=== PATIENT | female | born 1965 | race Caucasian/White ===

== ENCOUNTER 2020-03-03 07:15 | Inpatient (IN) | payer OTHER, SELFPAY ==
[~2020-03-03] VITALS: Ht 175.3 cm; Wt 92.1 kg
[2020-03-03 07:18] VITALS: Ht 175.3 cm; Wt 92.1 kg
[2020-03-03 08:14] LABS: PLATELET COUNT 306 x10^3mcL (130-400); RED CELL DISTRIBUTION WIDTH 13.4 % (11.5-14.5)
[2020-03-03 08:32] LABS: ALKALINE PHOSPHATASE 49 U/L (46-116); ALT/SGPT 29 U/L (14-59); AST/SGOT 26 U/L (15-37); BILIRUBIN TOTAL 0.93 mg/dL (0.20-1.00); C REACTIVE PROTEIN 8.6 mg/dL (<=0.9); CALCIUM 8.3 mg/dL (8.5-10.1); CHLORIDE SERUM 100 mmol/L (98-107); CREATININE SERUM 0.8 mg/dL (0.6-1.0); GFR1 > 60 mL/min; GLUCOSE SERUM 130 mg/dL (74-106); LACTIC DEHYDROGENASE (LDH) 254 U/L (100-190); SODIUM SERUM 139 mmol/L (136-145)
[2020-03-03 08:34] LABS: ALBUMIN 3.3 g/dL (3.4-5.0); POTASSIUM SERUM 2.8 mmol/L (3.5-5.1)
[2020-03-03 11:00] LABS: CHOLESTEROL/HDL RATIO 3.7; MAGNESIUM 1.7 mg/dL (1.8-2.4); PHOSPHOROUS 2.9 mg/dL (2.5-4.9)
[2020-03-03 11:11] LABS: FREE T4 1.86 ng/dL (0.76-1.46); T4(THYROXINE) 12.2 ug/dL (4.7-13.3)
[2020-03-03 11:33] LABS: T3 TOTAL 1.37 ng/mL
[2020-03-03 16:54] VITALS: BP 133/81
[2020-03-03 17:01] LABS: UA SPECIFIC GRAVITY 1.025 (1.005-1.035); microscopic required? YES; urine erythrocyte NEGATIVE (NEGATIVE)
[2020-03-03 17:24] LABS: AMPHETAMINE QUAL UR NONE DETECTED (See below)
[2020-03-03 22:20] VITALS: BP 128/89
[2020-03-04 06:06] VITALS: BP 118/71
[2020-03-04 07:30] LABS: BASOPHIL % 1.8 % (0-2); PLATELET COUNT 296 x10^3mcL (130-400)
[2020-03-04 07:51] LABS: C REACTIVE PROTEIN 5.7 mg/dL (<=0.9); CALCIUM 8.4 mg/dL (8.5-10.1); CARBON DIOXIDE 24.8 mmol/L (21-32); CHLORIDE SERUM 106 mmol/L (98-107); CREATININE SERUM 0.5 mg/dL (0.6-1.0); GFR1 > 60 mL/min; GLUCOSE SERUM 107 mg/dL (74-106); MAGNESIUM 1.7 mg/dL (1.8-2.4); PHOSPHOROUS 2.4 mg/dL (2.5-4.9); POTASSIUM SERUM 3.7 mmol/L (3.5-5.1); SODIUM SERUM 143 mmol/L (136-145)
[2020-03-04 09:10] VITALS: BP 145/89
[2020-03-04 11:59] VITALS: BP 115/70
[2020-03-04 17:13] VITALS: BP 125/66
[2020-03-04 20:38] VITALS: BP 119/74
[2020-03-05 06:03] VITALS: BP 152/92
[2020-03-05] MEDS ORDERED: DECADRON6 MG PO ×2 (07:40→11:44)
[2020-03-05] MEDS ORDERED: XARELTO10 M1 PO (07:40)
[2020-03-05] MEDS ORDERED: MUCINEX600 MG PO (07:41)
[2020-03-05 08:33] LABS: CALCIUM 8.4 mg/dL (8.5-10.1); CARBON DIOXIDE 26.4 mmol/L (21-32); CHLORIDE SERUM 104 mmol/L (98-107); CREATININE SERUM 0.5 mg/dL (0.6-1.0); GFR1 > 60 mL/min; GLUCOSE SERUM 89 mg/dL (74-106); MAGNESIUM 1.4 mg/dL (1.8-2.4); PHOSPHOROUS 2.6 mg/dL (2.5-4.9); SODIUM SERUM 142 mmol/L (136-145)
[2020-03-05 08:38] LABS: POTASSIUM SERUM 2.8 mmol/L (3.5-5.1)
[2020-03-05 09:32] VITALS: BP 134/89
[2020-03-05 09:45] LABS: BASOPHIL % 0.3 % (0-2); PLATELET COUNT 395 x10^3mcL (130-400); RED CELL DISTRIBUTION WIDTH 12.9 % (11.5-14.5)
[2020-03-05 11:10] VITALS: BP 152/92
[2020-03-05] MEDS ORDERED: POTASSIUM CHLO20 ME4 PO (13:14)
[2020-03-05] MEDS ORDERED: MAGNESIUM OXID200 MG PO (13:16)
[2020-03-05 14:13] VITALS: BP 139/84
[2020-03-05 18:14] VITALS: BP 132/76
== END 2020-03-05 20:56 | disposition home or self-care (01) | DRG 177 ==
LOC: ED 07:15 → DU 10:01
PROVIDERS: Emergency Medicine; ADMIT Family Medicine; ATTEND Family Medicine
DX: U07.1 COVID-19 (principal); J12.89 Other viral pneumonia; J96.00 Acute respiratory failure, unspecified whether with hypoxia or hypercapnia; E44.1 Mild protein-calorie malnutrition; E87.5 Hyperkalemia; E83.42 Hypomagnesemia; Z82.49 Family history of ischemic heart disease and other diseases of the circulatory system; Z68.29 Body mass index [BMI] 29.0-29.9, adult
CPT/HCPCS: 36600; 83880; 84439; G0378; J0456; J0696; J1100; J3480; J7030; Q0092; U0003-CS